=== PATIENT | female | born 1980 | race Caucasian/White ===

== ENCOUNTER 2017-12-16 20:15 | Observation (INO) | payer OTHER ==
[2017-12-16] MEDS ORDERED: HYDROmorphONE/DILAUDID 2 MG/ML INJ IVP PRN (22:14)
[2017-12-16] MEDS ORDERED: ONDANSETRON DISINTEGRATING 4 MG TAB PO PRN (22:14)
[2017-12-16] MEDS ORDERED: HYDROmorphONE/DILAUDID 2 MG TAB PO PRN (22:14)
[2017-12-16] MEDS ORDERED: ONDANSETRON 4 MG/2 ML VIAL IVP PRN (22:14)
[2017-12-16] MEDS ORDERED: ACETAMINOPHEN 325 MG TAB PO PRN (22:14)
[2017-12-16] MEDS ORDERED: KETOROLAC 15 MG/1 ML SDV IVP PRN (22:17)
[2017-12-16] MEDS ORDERED: DIAZEPAM 5 MG TAB PO PRN (22:18)
--- NOTE | 2017-12-16 22:21 | PDGENHP ---
History and Physical - Chief Complaint Acute throat swelling - History of Present Illness Primary care provider: None HPI: 37-year-old female presenting with acute throat swelling characterized as visual swelling located around her throat, particularly noticeable on the left side with associated extreme pain located in her posterior pharynx and superior throat, exacerbated by swallowing solids and liquids, somewhat alleviated by IV dexamethasone received at [facility] emergency department on . Patient reports her initial onset of symptoms approximately 3 weeks ago, with mild improvement during the interval, then significant worsening over the past several days. She reports that she has been attempting to manage the symptoms with [id number] ibuprofen and scheduled Tylenol as well as some Valium which was also prescribed at the emergency department on 12/14. She has not utilized antibiotics throughout the course of this illness. She denies any fevers or chills. She re-presented to the [facility] Emergency Department today, and they did not have access to an ear nose and throat surgeon and were also unable to service the patient's [employer] insurance. Consequently, they requested transfer to [facility]. Her pain symptoms were transiently alleviated in that emergency department. History Information - Allergies/Home Medication List Allergies/Adverse Reactions: No Known Allergies Allergy (Verified 12/16/17 22:17) Home Medications: Acetaminophen [Tylenol ES 500 mg (*)] 1,000 mg PO Q8 12/16/17 [Last Taken 06:00] Diazepam [Valium 5 MG (*)] 5 mg PO Q6 PRN 12/16/17 [Last Taken 12/16/17 12:00] Herbals/Supplements -Info Only 1 ea TP DAILY 12/16/17 [Last Taken Unknown] Ibuprofen [Motrin (*)] 400 mg PO Q8 12/16/17 [Last Taken 12/16/17 10:00] I have personally reviewed and updated: family history, medical history, social history, surgical history - Past Medical History no pertinent PMH - Surgical History Additional surgical history: Tonsillectomy remotely - Family History Additional family history: No family history of head or neck cancer, her daughter recently had a URI - Social History Smoking Status: Never smoked Alcohol Use: Occasionally Drug Use: Marijuana Additional social history: Independent in her ADLs Review of Systems Review of Systems: ROS: 10pt was reviewed & negative except for what was stated in HPI & below EENMT: Reports: sore throat, throat swelling Physical Exam Physical Exam: Temp Pulse Resp BP Pulse Ox 36.7 C 82 124/75 H 95 12/16/17 22:03 12/16/17 22:03 12/16/17 22:03 12/16/17 22:03 Constitutional: no apparent distress, appears nourished, uncomfortable, No not in pain (Mild) Eyes: PERRL, anicteric sclera, EOMI Ears, Nose, Mouth, Throat: moist mucous membranes, other (Difficult to visualize her tonsils secondary to her lingular anatomy, no lesions noted on the hard palate and no noted glossitis) Cardiovascular: regular rate and rhythym, no murmur, rub, or gallop, No edema Respiratory: no respiratory distress, no rales or rhonchi, clear to auscultation , other (No stridorous sounds or high-pitched wheezing on neck exam) Gastrointestinal: normoactive bowel sounds, soft, non-tender abdomen, No distension Skin: warm, No abrasion, No rash Neurologic: AAOx3, No facial droop Psychiatric: interacting appropriately, not anxious, not encephalopathic, thought process linear Lymph, Heme, Immunologic: other (Tender, 4 cm left submandibular lymph node, no particular lymphadenopathy on the right side, no anterior or posterior cervical lymphadenopathy) Assessment & Plan Assessment: 37-year-old female presents with acute left retropharyngeal abscess Plan: 1. Retropharyngeal abscess. Acute, new problem this provider, further workup indicated. Discussed with Vic Christie, emergency department provider, he reports to me that the CT demonstrates 1.4 cm x 1.5 cm left-sided retropharyngeal fluid collection consistent with abscess without any other notable neck space involvement -patient presented with CT image CD, will upload to PAC system -white blood cell count 21,000 at [facility], repeat white blood cell count in a.m. After initiation of antibiotics -get blood cultures now, fluid collection cultures perioperatively -most likely streptococcal or fusobacterium, initiate IV Unasyn now -discussed with Dr. Anmol Montano, he recommends IV steroids and since the patient does not currently have airway compromise, we will perform surgery tomorrow a.m. -infectious Disease consultation may be indicated depending on the findings -supportive care with IV and oral Dilaudid, as needed Toradol, scheduled Tylenol , viscous lidocaine -IV fluids supportively overnight Diet. Regular tonight, NPO after midnight Prophylaxis. Low risk patient, SCDs Code. Full Disposition. Anticipated discharge is 12/17 afternoon, pending surgical intervention and findings above.
[2017-12-16] MEDS ORDERED: LIDOCAINE 2% VISCOUS 15 ML UDCUP PO PRN (22:27)
[2017-12-16] MEDS: DEXAMETHASONE 4 MG/ML VIAL IVP SCH (23:53)
[2017-12-16] MEDS: D5W 1/2 NS W/ 20 KCl/L 1,000 ML IV SCH (23:53)
[2017-12-16] MEDS: AMPICILLIN/SULBACTAM 3 GM in NS 100 ML IV SCH (23:53)
[2017-12-17] MEDS: AMPICILLIN/SULBACTAM 3 GM in NS 100 ML IV SCH ×2 (05:08→13:22)
[2017-12-17] MEDS: DEXAMETHASONE 4 MG/ML VIAL IVP SCH ×2 (05:08→14:07)
[2017-12-17] MEDS: ACETAMINOPHEN 500 MG TAB PO SCH ×2 (05:35→14:08)
[2017-12-17 05:38] LABS: PLATELET COUNT 595 10^3/uL (150-400)
[2017-12-17 05:49] LABS: PROTIME(PATIENT) 13.4 SEC (12.0-15.0)
[2017-12-17] MEDS ORDERED: Herbals/Supplements -Info Only TP SCH (09:00)
--- NOTE | 2017-12-17 10:39 | ASMTCASEMG ---
Living Arrangements What is your living Answers: Alone arrangement? Who do you live with? Type Of Residence What kind of residence do Answers: House you live in? Discharge Plan Comments Coordination Status Comments Notes: Patient is a 37yo female who has been admitted for a retropharyngeal abscess and a white blood cell count of 21,000. Patient may need surgical intervention. If not, she will most likely d/c independently. No therapies ordered at this time. D/C plan TBD.CM will follow. Date Signed: 12/17/2017 10:38 AM Electronically Signed By:Cony Diez LCSW
[2017-12-17] MEDS: D5W 1/2 NS W/ 20 KCl/L 1,000 ML IV SCH (11:25)
--- NOTE | 2017-12-17 12:20 | HOSPPROG ---
Hospitalist Progress Note Assessment/Plan: 37-year-old female presents with acute left retropharyngeal abscess Plan: 1. Retropharyngeal abscess. Acute, new problem this provider, further workup indicated. Discussed with Vic Christie, emergency department provider, he reports to me that the CT demonstrates 1.4 cm x 1.5 cm left-sided retropharyngeal fluid collection consistent with abscess without any other notable neck space involvement -white blood cell count 21,000 at [facility], 15,400 this AM -get blood cultures now, fluid collection cultures perioperatively -most likely streptococcal or fusobacterium, continue IV Unasyn now - Dr. Anmol Montano, recommends IV steroids and since the patient does not currently have airway compromise, we will perform surgery today -infectious Disease consultation may be indicated depending on the findings -supportive care with IV and oral Dilaudid, as needed Toradol, scheduled Tylenol , viscous lidocaine -IV fluids supportively Diet. NPO preprocedure Prophylaxis. Low risk patient, SCDs Code. Full Disposition. Pending clinical course, may be able to be d/c after procedure today pending ENT recommendations Subjective: No complaints this AM Objective: Vital Signs Temp Pulse Resp BP Pulse Ox 36.6 C 75 14 134/83 H 96 12/17/17 11:49 12/17/17 11:49 12/17/17 11:49 12/17/17 11:49 12/17/17 11:49 Laboratory Results 12/17/17 05:11 12/17/17 05:11 12/16/17 12/17/17 12/18/17 05:59 05:59 05:59 Intake Total 350 Output Total 1900 Balance 350 -1900 PT 13.4 SEC (12.0-15.0) 12/17/17 05:11 INR 1.00 (0.83-1.16) 12/17/17 05:11 - Physical Exam Constitutional: no apparent distress Eyes: PERRL Ears, Nose, Mouth, Throat: moist mucous membranes Cardiovascular: regular rate and rhythym Respiratory: no respiratory distress Gastrointestinal: soft, non-tender abdomen Skin: warm Musculoskeletal: no joint effusions Neurologic: AAOx3 Psychiatric: interacting appropriately ICD10 Worksheet Patient Problems: Problems Problem Status Onset Retropharyngeal abscess Acute - ICD10 Problem Qualifiers (1) Retropharyngeal abscess
--- NOTE | 2017-12-17 14:55 | GCON ---
DATE OF CONSULTATION: 12/17/2017 REASON FOR CONSULTATION: Left neck infection/possible abscess. HISTORY: The patient is a 37-year-old woman, who 3 weeks ago had the onset of sore throat with myalg ias. She says she got better for about a week and felt fine, and then she suddenly had an increase i n sore throat about 9 days ago. Three days ago, she went to a local urgent care and was then referre d to the emergency department. She was seen, and then given prednisone and Valium, but no antibiotic s. Yesterday, she had a significant increase in the pain. She went to the ER in [place], and a CT scan was done which showed left-sided neck infection and concern for abscess. The patient was then t ransferred to [facility] due to the lack of ENT coverage at [facility]. The patient was brought to the hospital, and given IV antibiotics and Decadron. She feels much bet ter now, stating that she does not have enough discomfort to require any pain medication. PAST MEDICAL HISTORY: Negative for any chronic medical diseases. PAST SURGICAL HISTORY: Tonsillectomy at age 17. . ALLERGIES: None. MEDICATIONS: None. SOCIAL HISTORY: The patient is with 2 children and lives in [place]. PHYSICAL EXAM: GENERAL: The patient is healthy in appearance, speaking clearly in full sentences, a nd not in any obvious pain or discomfort. Neck mobility is good. EAR EXAM: Normal external ears, e ar canals, and tympanic membranes bilaterally. No sign of middle ear disease is noted. NOSE: Intra nasal exam shows a little bit of crusting on the front of the nose, otherwise normal. ORAL CAVITY EX AM: The patient has no trismus. The tongue and floor of mouth are normal. Palate exam shows some f ullness of the left side of the palate, as well as fullness extending down along the tonsillar fossa. NECK: Exam on palpation shows no palpable adenopathy or abnormal masses. PROCEDURE: Flexible endoscopy/laryngoscopy: The flexible laryngoscope is passed through both nostri ls, evaluating the nasal passages. The nasal anatomy is normal. No signs of sinusitis. Nasopharyng eal exam is notable for some fullness on the left lateral aspect of the nasopharynx. Hypopharynx and larynx exam show a bit of fullness along the left tonsillar fossa. The base of tongue is normal. T he larynx is normal and fully visible. The epiglottis is not swollen. Vocal cords move well on phon ation and respiration. Incision and drainage of left PRENATAL GENETIC COUNSELOR: The patient's left palate and tonsillar fossa were infiltrated wi th a total of 3 cc of 1% lidocaine with 1:100,000 epinephrine. A 4-point needle aspiration was then performed going along the soft palate and then medial to the mandible, and then in the middle of the tonsillar fossa where there was swelling. No pus was evident. I then used the tip of the 18-gauge n eedle and made a 1.5 cm scratch in the mucous membrane. I used a blunt hemostat spreading into the p arapharyngeal space. There was no bleeding. No pus was evident. The patient tolerated this well. E stimated blood loss was minimal. LABORATORY DATA: White count 15.43 and platelets of 595, with neutrophils elevated at 88.6%. CT scan: I examined the images myself. The patient has a decreased density, which could be either a phlegmon or abscess extending from the region of the nasopharynx down to the lower portion of the to nsillar fossa. The fact that I was unable to find any pus makes me feel this is a phlegmon, and ther e is no sign of any actual abscess formation yet. IMPRESSION: Left nasopharyngeal and parapharyngeal space infection. The patient has had no antibiot ics yet, but has had significant improvement in the last 12 hours on high-dose Unasyn. At this point , I think she should get one more dose of the intravenous antibiotics and is likely able to be discha rged home this evening on oral Augmentin. She will follow up with us on Sunday in the clinic. Thank you so much for this consultation. /[id number]/MODL
[2017-12-17 16:18] VITALS: BP 125/76
--- NOTE | 2017-12-17 16:41 | PDDCSUM ---
Discharge Summary Discharge Summary: Date of Admission: 12/16/2017 Date of Discharge: 12/17/2017 Consults: ENT Followup: ENT on Hospital Course Problem List: 37-year-old female presents with acute left retropharyngeal abscess 1. Retropharyngeal abscess. - CT demonstrates 1.4 cm x 1.5 cm left-sided retropharyngeal fluid collection without any other notable neck space involvement - White blood cell count 21,000 at [facility], 15,400 this AM - ENT, Dr. Anmol Montano, consulted, attempted aspiration with no pus evident , believes this may be a phlegmon rather than abscess - Will transition from IV Unasyn to PO Augmentin per ENT for discharge, f/u on Sunday, with them to determine duration - Transitioning from IV Dexamethasone to PO, ENT recommends 8 mg on 12/18, they have written hand scripts for both PO Dexamethasone and Augmentin - Blood cultures collected on admission - Pain control PRN Time spent on discharge was >35 minutes with >50% of time spent on patient education and counseling
--- NOTE | 2017-12-17 16:57 | SOAPPROG ---
SOAP Progress Note Assessment/Plan: Assessment: Patient doing well s/p I and D of left RN MEDICARE by Dr. Montano Denies dysphagia, dyspnea Okay for d/c PO augmentin, dexamethasone FOllow up 2 days plan reviewed with Dr. Montano Plan: 12/17/17 16:56 Objective: Vital Signs Temp Pulse Resp BP Pulse Ox 36.6 C 77 16 125/76 H 97 12/17/17 16:00 12/17/17 16:00 12/17/17 16:00 12/17/17 16:00 12/17/17 16:00 Laboratory Results 12/17/17 05:11 12/17/17 05:11 12/16/17 12/17/17 12/18/17 05:59 05:59 05:59 Intake Total 350 550 Output Total 1900 Balance 350 -1350 PT 13.4 SEC (12.0-15.0) 12/17/17 05:11 INR 1.00 (0.83-1.16) 12/17/17 05:11 ICD10 Worksheet Patient Problems: Problems Problem Status Onset Retropharyngeal abscess Acute
[2017-12-17] MEDS ORDERED: AMOXICILLIN/CLAVULANATE POT 875/125 MG TAB PO SCH (21:00)
[2017-12-17] MEDS ORDERED: AMOX/CLAVULANATE 500/125 MG TAB PO SCH (21:00)
[2017-12-18] MEDS ORDERED: DEXAMETHASONE 2 MG TAB PO ONE (08:00)
== END 2017-12-17 17:35 | disposition home or self-care (01) ==
LOC: INTOOBSV 20:15 → F3E 20:15
PROVIDERS: ADMIT Internal Medicine; ATTEND Internal Medicine
DX: J39.0 Retropharyngeal and parapharyngeal abscess (principal)
CPT/HCPCS: G0378; G0379; J0295; J1100; J1885